=== PATIENT | female | born 1970 | race Caucasian/White ===

== ENCOUNTER 2020-09-07 15:18 | Emergency (ER) | payer MEDICAID, OTHER ==
[~2020-09-07] VITALS: Ht 172.7 cm; Wt 110.2 kg
[2020-09-07 15:48] VITALS: BP 120/58
--- NOTE | 2020-09-07 16:17 | NUR ---
PT REFUSED EKG
[2020-09-07 16:51] LABS: BASOPHILS % (AUTO) 1 % (0-1); EOSINOPHILS % (AUTO) 2 % (1-7); LYMPHOCYTES % (AUTO) 32 % (22-44); MEAN CORPUSCULAR HGB CONC 33.3 g/dL (32.4-35.8); MEAN PLATELET VOLUME 9.3 fL (7.4-10.4); MONOCYTES % (AUTO) 7 % (2-9); NEUTROPHILS % (AUTO) 59 % (42-75); PLATELET COUNT 291 x10^3/uL (130-400); RED BLOOD COUNT 4.24 x10^6/uL (3.82-5.3); RED CELL DISTRIBUTION WIDTH 14.1 % (9.6-15.2)
[2020-09-07 17:02] LABS: ALBUMIN 3.6 g/dL (3.4-5.0); ANION GAP 5 mmol/L (5-15); CALCIUM 8.6 mg/dL (8.5-10.1); CHLORIDE 111 mmol/L (98-107); CREATININE 0.92 mg/dL (0.55-1.02)
[2020-09-07 17:30] LABS: MICROSCOPIC INDICATED
== END 2020-09-07 18:44 | disposition home or self-care (01) ==
LOC: ED 18:03
DX: R53.1 Weakness (principal); R53.83 Other fatigue; R94.31 Abnormal electrocardiogram [ECG] [EKG]; Z90.710 Acquired absence of both cervix and uterus
CPT/HCPCS: 36415; 80048; 81001; 82040; 85025; 87086; 93005; 99284